=== PATIENT | male | born 1970 | race African-American/Black ===

== ENCOUNTER 2016-12-04 12:30 | Emergency (ER) | payer SELFPAY ==
--- NOTE | 2016-12-10 17:58 | ER ---
ADMIT: 12/04/2016 RM/LOC: ER [facility] [place] MR#: [id number] [facility] [address] [place], [place] [address] HARMONY MARCANO [address] [place] [address] Emergency Room Report SEX: M AGE: 46 : 1970 DATE: 12/04/2016 BRIEF ADDENDUM: Please see my T-sheet for complete review of systems, past medical history, and physical exam. CHIEF COMPLAINT: Abdominal pain. HISTORY OF PRESENT ILLNESS: This is a pleasant 46-year-old male, presents to the ER with abdominal pain. States this began yesterday after he had a meal. Still present. Rates as a 10/10. Describes as the pain in the right upper quadrant. Admits to some nausea and loss of appetite. No fever, chills, vomiting, back pain, neck pain. Worse with food, relieved by nothing. He has tried some antacids [id number] at home. Otherwise, healthy. COURSE IN EMERGENCY ROOM: The patient was seen and examined. PHYSICAL EXAMINATION: VITAL SIGNS: He is afebrile and nontoxic. He is in mild amount of distress secondary to pain. HEENT: Normocephalic and atraumatic. Pharynx not erythematous. RESPIRATORY: No respiratory distress. Breath sounds equal bilaterally. HEART: Regular rate and rhythm. ABDOMEN: Soft. He does have some tenderness in the right upper quadrant with positive Atkins sign. No McBurney's point tenderness. No guarding or rebound. BACK: Normal inspection. No CVA tenderness. SKIN: Warm and dry. EXTREMITIES: Nontender. No pedal edema. I did get him normal saline, fluids as well as Zofran, Toradol, and morphine for pain control. LABORATORY DATA: White count 9.5, hemoglobin 15.1, hematocrit 44.1, platelets 243. Chemistry: Sodium 140, potassium 5.3, BUN 21, glucose 102, creatinine ADMIT: 12/04/2016 RM/LOC: ER [facility] [place] MR#: [id number] [place], [place] [address] NYLA GARDNER, HARMONY [address] [place] [address] Emergency Room Report SEX: M AGE: 46 : 1970 1.3, lipase 160, AST 65, ALT 66. Right upper quadrant ultrasound shows 1.3 cm gallbladder stone without ductal dilatation or wall thickening. No free fluid. IMPRESSION: Cholelithiasis with biliary colic. DISPOSITION: The patient was discharged. Script for [place] 5/325 mg one tab every 4 to 6 hours p.o. as needed for pain. He is to follow up with Dr. Smith this week, call to make this appointment. Continue to push fluids as tolerated. He is to follow a low-fat diet. Return with any worsening signs or symptoms. Questions sought and answered to best of my ability and the patient's satisfaction. Discharged in stable condition. JOSE Carter / Chu Murrell MD / fredal JOB #: [id number] CC: Chu Murrell MD, Attending Physician UNKNOWN, Family Physician
== END 2016-12-04 15:18 | disposition home or self-care (01) ==
LOC: ER 12:30
DX: K80.70 Calculus of gallbladder and bile duct without cholecystitis without obstruction (principal); Z79.899 Other long term (current) drug therapy